=== PATIENT | male | born 1950 | race Caucasian/White ===

== ENCOUNTER 2017-06-05 09:39 | Emergency (ER) | payer MEDICARE ==
[~2017-06-05] VITALS: Ht 172.7 cm; Wt 90.7 kg
[2017-06-05] MEDS ORDERED: GABA-531 PO (10:06)
[2017-06-05] MEDS ORDERED: TAMS0.4C32 PO (10:06)
[2017-06-05] MEDS ORDERED: CLOP75 PO (10:06)
[2017-06-05] MEDS ORDERED: MELO-107 PO (10:06)
[2017-06-05] MEDS ORDERED: PANT40TA25 PO (10:06)
[2017-06-05] MEDS ORDERED: VITA400T9 PO (10:06)
[2017-06-05] MEDS ORDERED: ATEN50TA PO (10:06)
[2017-06-05] MEDS ORDERED: MODA100 PO (10:06)
[2017-06-05] MEDS ORDERED: ALEN70TA48 PO (10:06)
[2017-06-05] MEDS ORDERED: FURO20 PO (10:06)
[2017-06-05] MEDS ORDERED: ATOR20TA86 PO (10:06)
[2017-06-05] MEDS ORDERED: CARB1TAB41 PO (10:06)
[2017-06-05] MEDS ORDERED: CYAN500 PO (10:06)
[2017-06-05] MEDS ORDERED: ASPI81 PO (10:06)
[2017-06-05] MEDS ORDERED: TRAM50TA4 PO (10:06)
[2017-06-05] MEDS ORDERED: ESCI10TA PO (10:06)
[2017-06-05] MEDS ORDERED: SAW450CA7 PO (10:06)
[2017-06-05] MEDS ORDERED: LEVO50 PO (10:06)
[2017-06-05 12:50] VITALS: BP 137/67
== END 2017-06-05 13:00 | disposition home or self-care (01) ==
LOC: EMS 09:41
DX: S13.4XXA Sprain of ligaments of cervical spine, initial encounter (principal); S09.90XA Unspecified injury of head, initial encounter; I10 Essential (primary) hypertension; I25.10 Atherosclerotic heart disease of native coronary artery without angina pectoris; E03.9 Hypothyroidism, unspecified; E78.00 Pure hypercholesterolemia, unspecified; F32.9 Major depressive disorder, single episode, unspecified; F80.9 Developmental disorder of speech and language, unspecified; G20 Parkinson's disease; I73.9 Peripheral vascular disease, unspecified; K21.9 Gastro-esophageal reflux disease without esophagitis; M81.0 Age-related osteoporosis without current pathological fracture; N40.0 Benign prostatic hyperplasia without lower urinary tract symptoms; Z79.82 Long term (current) use of aspirin; W07.XXXA Fall from chair, initial encounter; Y93.89 Activity, other specified; Y92.89 Other specified places as the place of occurrence of the external cause; Y99.8 Other external cause status
CPT/HCPCS: 70450; 72125; 82962; 99284

== ENCOUNTER 2017-06-15 20:26 | Inpatient (IN) | payer MEDICARE ==
[~2017-06-15] VITALS: Ht 175.3 cm; Wt 91.1 kg
[~2017-06-15 20:26] MED LIST: ALEN70TA48 PO; ASPI81 PO; ATEN50TA PO; ATOR20TA86 PO; CARB1TAB41 PO; CLOP75 PO; CYAN500 PO; ESCI10TA PO; FURO20 PO; GABA-531 PO; LEVO50 PO; MELO-107 PO; MODA100 PO; PANT40TA25 PO; SAW450CA7 PO; TAMS0.4C32 PO; TRAM50TA4 PO; VITA400T9 PO
[2017-06-15 20:50] LABS: BASOPHILS % (AUTO) 1.2 % (0.0-2.0); EOSINOPHILS % (AUTO) 1.2 % (1.0-6.0); HEMATOCRIT 33.4 % (41-53); HEMOGLOBIN 11.6 g/dL (13.5-17.5); LYMPHOCYTES # (AUTO) 1.2 K/uL (1.0-4.8); MEAN CORPUSCULAR HEMOGLOBIN 31.7 pg (26.0-34.0); MEAN CORPUSCULAR HGB CONC 34.6 G/dL (31.0-37.0); MEAN CORPUSCULAR VOLUME 91 fL (80-100); MONOCYTES # (AUTO) 0.7 K/uL (0.1-1.0); MONOCYTES % (AUTO) 7.4 % (2.0-9.0); NEUTROPHILS # (AUTO) 6.7 K/uL (1.8-7.7); NEUTROPHILS % (AUTO) 76.2 % (40.0-70.0); PLATELET COUNT (AUTO) 220 K/uL (150-450); RED BLOOD CELL COUNT(AUTO) 3.65 MIL/uL (4.50-5.90); RED CELL DISTRIBUTION WIDTH 13.4 % (11.5-14.5); WHITE BLOOD COUNT (AUTO) 8.8 K/uL (4.5-11.0)
[2017-06-15 21:00] LABS: ANION GAP 7 mmol/L (8-16); CALCIUM, TOTAL 8.8 mg/dL (8.8-10.5); CARBON DIOXIDE 29 mmol/L (22-29); CHLORIDE 107 mmol/L (98-107); CREATININE 1.15 mg/dL (0.60-1.30); GLOMERULAR FILTR. RATE CALC > 60 mL/min (>60); POTASSIUM 3.4 mmol/L (3.5-5.1); SODIUM SERUM 143 mmol/L (136-145); UREA NITROGEN, BLOOD 22 mg/dL (7-18)
[2017-06-15 21:17] LABS: INR 1.1 (0.9-1.1); PROTHROMBIN TIME 11.9 SEC (9.4-11.6)
[2017-06-15 21:25] LABS: ALANINE AMINOTRANSFERASE 9 U/L (12-78); ALBUMIN 3.5 g/dL (3.4-5.0); ASPARTATE AMINOTRANSFERASE 13 U/L (15-37); BILIRUBIN,TOTAL 0.7 mg/dL (0.1-1.0); CREATINE KINASE MB 4.5 ng/mL (0-5); CREATINE KINASE, TOTAL 140 U/L (39-308); TOTAL PROTEIN, SERUM 7.2 g/dL (6.4-8.2)
[2017-06-15 21:31] LABS: B-TYPE NATRIURETIC PEPTIDE 164 pg/mL (0-100)
[2017-06-15] MEDS ORDERED: 0.9% SODIUM CHLORIDE 5 ML NEB SOLUTION NEB ONE (21:52)
[2017-06-15] MEDS ORDERED: IPRATROPIUM BROMIDE 0.5 MG/2.5 ML NEB SOLUTION NEB ONE (22:00)
[2017-06-15] MEDS ORDERED: MAGNESIUM SULFATE 2 GM in DEXTROSE 5%-WATER 50 ML IV ONE (22:00)
[2017-06-15] MEDS ORDERED: ALBUTEROL SULFATE 5 MG/ML 20 ML NEB SOLN [BULK] NEB ONE (22:00)
[2017-06-15] MEDS ORDERED: DEXAMETHASONE SOD PHOS 4 MG/ML 5 ML VIAL IVP ONE (22:00)
[2017-06-15] MEDS ORDERED: FUROSEMIDE 40 MG/4 ML VIAL IVP ONE (22:30)
[2017-06-15 23:42] LABS: APPEARANCE,URINE CLEAR (CLEAR); GLUCOSE, URINE (UA) NEGATIVE (NEGATIVE); KETONES,URINE NEGATIVE (NEGATIVE); LEUKOCYTE ESTERASE ,URINE NEGATIVE (NEGATIVE); OCCULT BLOOD,URINE NEGATIVE (NEGATIVE); PH,URINE 5.5 (5.0-8.0); PROTEIN,URINE NEGATIVE (NEGATIVE)
[2017-06-15 23:48] LABS: ADD UA MICROSCOPIC NO
[2017-06-16] MEDS ORDERED: TraMADol HCL 50 MG TABLET PO PRN ×2 (00:15→00:45)
[2017-06-16] MEDS ORDERED: CefTRIAXone 1 GM/DEXTROSE 50 ML IV ONE (00:30)
[2017-06-16] MEDS ORDERED: 0.9% SODIUM CHLORIDE 10 ML SYRINGE IVP PRN (00:30)
[2017-06-16] MEDS ORDERED: MORPHINE SULFATE 2 MG/ML SYRINGE IVP PRN (00:30)
[2017-06-16] MEDS ORDERED: HYDROCODONE/ACETAMINOPHEN 5-325 MG TABLET PO PRN (00:30)
[2017-06-16] MEDS ORDERED: ACETAMINOPHEN 325 MG TABLET PO PRN (00:30)
[2017-06-16] MEDS ORDERED: OxyCODONE HCL/ACETAMINOPHEN 5-325 MG TABLET PO PRN (00:30)
[2017-06-16] MEDS ORDERED: ALBUTEROL SULFATE 2.5 MG/0.5 ML NEB SOLUTION NEB PRN (00:30)
[2017-06-16] MEDS ORDERED: SODIUM CHLORIDE 0.9% 500 ML IV ONE (01:10)
[2017-06-16 01:20] VITALS: BP 130/82
[2017-06-16] MEDS: DOCUSATE SODIUM 100 MG CAPSULE PO SCH ×2 (01:29→08:44)
[2017-06-16] MEDS: MethylPREDNISolone SOD SUCC 125 MG/2 ML VIAL IVP SCH ×3 (01:29→15:15)
[2017-06-16] MEDS: ATENOLOL 50 MG TABLET PO SCH ×2 (01:35→08:45)
[2017-06-16] MEDS: IPRATROPIUM BROMIDE 0.5 MG/2.5 ML NEB SOLUTION NEB SCH ×3 (01:58→14:56)
[2017-06-16] MEDS: ALBUTEROL SULFATE 2.5 MG/0.5 ML NEB SOLUTION NEB SCH ×3 (01:58→14:56)
[2017-06-16] MEDS ORDERED: ALBUTEROL SULFATE 2.5 MG/0.5 ML NEB SOLUTION NEB SCH (03:00)
[2017-06-16] MEDS ORDERED: IPRATROPIUM BROMIDE 0.5 MG/2.5 ML NEB SOLUTION NEB SCH (03:00)
[2017-06-16] MEDS: OxyCODONE HCL/ACETAMINOPHEN 5-325 MG TABLET PO PRN ×3 (03:02→15:05)
[2017-06-16 04:58] VITALS: BP 133/66
[2017-06-16] MEDS ORDERED: LEVOTHYROXINE SODIUM 50 MCG TABLET PO SCH ×2 (06:30)
[2017-06-16 07:22] LABS: EOSINOPHILS % (AUTO) 0 % (1.0-6.0); HEMATOCRIT 36.4 % (41-53); HEMOGLOBIN 12.7 g/dL (13.5-17.5); LYMPHOCYTES # (AUTO) 0.3 K/uL (1.0-4.8); LYMPHOCYTES % (AUTO) 3.2 % (22.0-44.0); MEAN CORPUSCULAR HEMOGLOBIN 31.7 pg (26.0-34.0); MEAN CORPUSCULAR HGB CONC 34.8 G/dL (31.0-37.0); MEAN CORPUSCULAR VOLUME 91 fL (80-100); MONOCYTES % (AUTO) 0.3 % (2.0-9.0); PLATELET COUNT (AUTO) 275 K/uL (150-450); RED BLOOD CELL COUNT(AUTO) 3.99 MIL/uL (4.50-5.90); RED CELL DISTRIBUTION WIDTH 13.4 % (11.5-14.5); WHITE BLOOD COUNT (AUTO) 9.3 K/uL (4.5-11.0)
[2017-06-16 07:36] LABS: NEUTROPHILS % (AUTO) 96.5 % (40.0-70.0)
[2017-06-16 07:40] LABS: ALBUMIN 3.9 g/dL (3.4-5.0); BILIRUBIN,TOTAL 0.7 mg/dL (0.1-1.0); CALCIUM, TOTAL 9.2 mg/dL (8.8-10.5); CREATININE 1.34 mg/dL (0.60-1.30); TOTAL PROTEIN, SERUM 8.2 g/dL (6.4-8.2)
[2017-06-16 07:42] VITALS: BP 126/65
[2017-06-16] MEDS ORDERED: MethylPREDNISolone SOD SUCC 125 MG/2 ML VIAL IVP ONE (08:00)
[2017-06-16] MEDS: CARBIDOPA/LEVODOPA 25-100 MG ER TABLET PO SCH ×2 (08:46→15:06)
[2017-06-16] MEDS ORDERED: ATENOLOL 50 MG TABLET PO SCH (09:00)
[2017-06-16] MEDS ORDERED: CYANOCOBALAMIN 500 MCG TABLET PO SCH (09:00)
[2017-06-16] MEDS ORDERED: CLOPIDOGREL BISULFATE 75 MG TABLET PO SCH (09:00)
[2017-06-16] MEDS ORDERED: MELOXICAM 7.5 MG TABLET PO SCH (09:00)
[2017-06-16] MEDS ORDERED: PANTOPRAZOLE SODIUM 40 MG DR TABLET PO SCH (09:00)
[2017-06-16] MEDS ORDERED: ASPIRIN 81 MG CHEWABLE TABLET PO SCH (09:00)
[2017-06-16] MEDS ORDERED: MODAFINIL 100 MG TABLET PO SCH (09:00)
[2017-06-16] MEDS ORDERED: PANTOPRAZOLE SODIUM 40 MG/VIAL IVP ONE (09:00)
[2017-06-16] MEDS ORDERED: CARBIDOPA/LEVODOPA 25-100 MG TABLET PO SCH (09:00)
[2017-06-16] MEDS ORDERED: ESCITALOPRAM OXALATE 10 MG TABLET PO SCH ×2 (09:00)
[2017-06-16] MEDS ORDERED: PANTOPRAZOLE SODIUM 40 MG/VIAL IVP SCH (09:00)
[2017-06-16] MEDS ORDERED: FUROSEMIDE 20 MG TABLET PO SCH (09:00)
[2017-06-16] MEDS ORDERED: FUROSEMIDE 20 MG TABLET PO ONE (09:00)
[2017-06-16] MEDS ORDERED: ENOXAPARIN SODIUM 40 MG/0.4 ML PF SYRINGE SQ SCH ×2 (09:00)
[2017-06-16 11:38] VITALS: BP 148/75
[2017-06-16 15:15] VITALS: BP 121/66
[2017-06-16] MEDS ORDERED: TAMSULOSIN HCL 0.4 MG CAPSULE PO SCH ×2 (21:00)
[2017-06-16] MEDS ORDERED: ATORVASTATIN CALCIUM 20 MG TABLET PO SCH (21:00)
[2017-06-16] MEDS ORDERED: GABAPENTIN 300 MG CAPSULE PO SCH ×2 (21:00)
[2017-06-20] MEDS ORDERED: ALENDRONATE SODIUM 70 MG TABLET PO SCH (06:30)
== END 2017-06-16 18:00 | disposition short-term general hospital (02) | DRG 192 ==
LOC: EMS 20:27 → 5N 23:53 → 6N 06-16 00:52
PROVIDERS: ADMIT Internal Medicine; ATTEND Internal Medicine
DX: J44.1 Chronic obstructive pulmonary disease with (acute) exacerbation (principal); G20 Parkinson's disease; E03.9 Hypothyroidism, unspecified; E78.00 Pure hypercholesterolemia, unspecified; G47.419 Narcolepsy without cataplexy; I10 Essential (primary) hypertension; I73.9 Peripheral vascular disease, unspecified; K21.9 Gastro-esophageal reflux disease without esophagitis; N40.0 Benign prostatic hyperplasia without lower urinary tract symptoms
CPT/HCPCS: 93005; 93306; 94640; 94644; 96365; 96366; 96375; 99291; J0696; J1100; J1940; J2930; J3475; J7040; J7060